=== PATIENT | female | born 1965 | race Caucasian/White ===

== ENCOUNTER 2023-01-12 05:40 | Day surgery (SDC) | payer OTHER ==
[~2023-01-12] VITALS: Ht 167.6 cm; Wt 63.5 kg
[~2023-01-12 05:40] MED LIST: ANAPROX275 MG PO; PEPCID AC10 MG PO
[2023-01-12] MEDS ORDERED: IBU600 MG PO (08:22)
== END 2023-01-12 14:10 | disposition home or self-care (01) ==
LOC: CIR.AMB 05:40
PROVIDERS: ATTEND Obstetrics & Gynecology Gynecology
DX: N85.8 Other specified noninflammatory disorders of uterus (principal); R10.2 Pelvic and perineal pain; T83.89XA Other specified complication of genitourinary prosthetic devices, implants and grafts, initial encounter; Z20.822 Contact with and (suspected) exposure to COVID-19